=== PATIENT | male | born 1955 | race Caucasian/White ===

== ENCOUNTER 2021-11-02 15:45 | Emergency (ER) | payer MEDICAID, MEDICARE ==
[2021-11-02 18:34] LABS: ESTIMATED GFR 84 mL/min (>60)
[2021-11-02 19:13] VITALS: BP 126/75; PULSE 59
== END 2021-11-02 20:03 | disposition home or self-care (01) ==
LOC: JP.ED 15:45
DX: R41.0 Disorientation, unspecified (principal); E87.5 Hyperkalemia; I10 Essential (primary) hypertension; Z79.899 Other long term (current) drug therapy; Z79.82 Long term (current) use of aspirin
CPT/HCPCS: 36415; 80053; 81001; 85025; 87086; 93005; 99285

== ENCOUNTER 2021-11-17 12:23 | Emergency (ER) | payer MEDICARE ==
[2021-11-17 14:44] LABS: ESTIMATED GFR 75 mL/min (>60)
[2021-11-17 14:59] VITALS: BP 141/54; PULSE 57
== END 2021-11-17 16:15 | disposition home or self-care (01) ==
LOC: JP.ED 12:23
DX: F41.9 Anxiety disorder, unspecified (principal); F32.9 Major depressive disorder, single episode, unspecified; I12.9 Hypertensive chronic kidney disease with stage 1 through stage 4 chronic kidney disease, or unspecified chronic kidney disease; N18.30 Chronic kidney disease, stage 3 unspecified; R41.0 Disorientation, unspecified; R53.82 Chronic fatigue, unspecified; Z79.899 Other long term (current) drug therapy; Z79.82 Long term (current) use of aspirin
CPT/HCPCS: 36415; 80053; 81001; 84443; 85025; 99283

== ENCOUNTER 2021-12-02 12:02 | Emergency (ER) | payer MEDICARE ==
[2021-12-02 13:23] LABS: ESTIMATED GFR 84 mL/min (>60)
[2021-12-03] MEDS ORDERED: hydrOXYzine HCl 25 MG Tab PO PRN (11:14)
[2021-12-03] MEDS ORDERED: Ibuprofen 600 MG Tab PO ONE (11:14)
[2021-12-03] MEDS ORDERED: Furosemide 40 MG Tab PO SCH (11:15)
[2021-12-03] MEDS ORDERED: Non-Formulary Medication 1 Each (Potassium Chloride [Potassium Chloride] 20 MEQ Tablet.Er) PO SCH (11:15)
[2021-12-03] MEDS ORDERED: Non-Formulary Medication 1 Each (Magnesium Chloride [Magnesium] 64 MG Tablet) PO SCH (11:15)
[2021-12-03] MEDS ORDERED: ARIPiprazole 10 MG Tab PO SCH (11:15)
[2021-12-03] MEDS ORDERED: Non-Formulary Medication 1 Each (Metoprolol Succinate [Metoprolol Succinate] 100 MG Tab.Er PO SCH (11:15)
[2021-12-03] MEDS ORDERED: Potassium Chloride 20 MEQ Tab.ER PO ONE (11:16)
[2021-12-03] MEDS: Aspirin 81 MG Tab.Chew PO SCH (11:50)
[2021-12-03] MEDS: Metoprolol Succinate 50 MG Tab.ER PO SCH (11:52)
[2021-12-03] MEDS: Magnesium Oxide 400 MG Tab PO SCH (11:55)
[2021-12-03] MEDS: Furosemide 20 MG Tab PO SCH ×2 (11:56→17:45)
[2021-12-03] MEDS: Potassium Chloride 20 MEQ Tab.ER PO SCH ×2 (11:57→21:05)
[2021-12-03] MEDS: Polyethylene Glycol 3350 Powder 17 GM Packet PO SCH (12:02)
[2021-12-03] MEDS: atorvaSTATin 20 MG Tab PO SCH (21:05)
[2021-12-03] MEDS: Tamsulosin 0.4 MG Cap.ER PO SCH (21:05)
[2021-12-04] MEDS: Polyethylene Glycol 3350 Powder 17 GM Packet PO SCH (08:22)
[2021-12-04] MEDS: Potassium Chloride 20 MEQ Tab.ER PO SCH ×2 (08:22→23:13)
[2021-12-04] MEDS: Metoprolol Succinate 50 MG Tab.ER PO SCH (08:23)
[2021-12-04] MEDS: Magnesium Oxide 400 MG Tab PO SCH (08:23)
[2021-12-04] MEDS: Aspirin 81 MG Tab.Chew PO SCH (08:23)
[2021-12-04] MEDS: Furosemide 20 MG Tab PO SCH ×2 (08:25→13:46)
[2021-12-04] MEDS: hydrOXYzine HCl 25 MG Tab PO SCH ×2 (16:03→23:12)
[2021-12-04] MEDS: atorvaSTATin 20 MG Tab PO SCH (23:12)
[2021-12-04] MEDS: Tamsulosin 0.4 MG Cap.ER PO SCH (23:12)
[2021-12-04] MEDS: Haloperidol 1 MG Tab PO SCH (23:21)
[2021-12-05] MEDS: Polyethylene Glycol 3350 Powder 17 GM Packet PO SCH (10:13)
[2021-12-05] MEDS: Aspirin 81 MG Tab.Chew PO SCH (10:13)
[2021-12-05] MEDS: hydrOXYzine HCl 25 MG Tab PO SCH ×2 (10:14→21:34)
[2021-12-05] MEDS: Potassium Chloride 20 MEQ Tab.ER PO SCH ×2 (10:14→21:33)
[2021-12-05] MEDS: Furosemide 20 MG Tab PO SCH ×2 (10:14→13:45)
[2021-12-05] MEDS: Magnesium Oxide 400 MG Tab PO SCH (10:15)
[2021-12-05] MEDS: Metoprolol Succinate 50 MG Tab.ER PO SCH (10:16)
[2021-12-05] MEDS: Tamsulosin 0.4 MG Cap.ER PO SCH (21:34)
[2021-12-05] MEDS: Haloperidol 1 MG Tab PO SCH (21:34)
[2021-12-05] MEDS: atorvaSTATin 20 MG Tab PO SCH (21:34)
[2021-12-06] MEDS: Metoprolol Succinate 50 MG Tab.ER PO SCH (09:38)
[2021-12-06] MEDS: Aspirin 81 MG Tab.Chew PO SCH (09:38)
[2021-12-06] MEDS: Furosemide 20 MG Tab PO SCH (09:38)
[2021-12-06] MEDS: Magnesium Oxide 400 MG Tab PO SCH (09:51)
[2021-12-06] MEDS: hydrOXYzine HCl 25 MG Tab PO SCH ×2 (09:52→22:11)
[2021-12-06] MEDS: Polyethylene Glycol 3350 Powder 17 GM Packet PO SCH (09:52)
[2021-12-06] MEDS: Potassium Chloride 20 MEQ Tab.ER PO SCH ×2 (09:52→22:11)
[2021-12-06] MEDS ORDERED: LORazepam 1 MG Tab PO PRN (11:54)
[2021-12-06] MEDS: Sertraline 50 MG Tab PO SCH (12:16)
[2021-12-06] MEDS: Tamsulosin 0.4 MG Cap.ER PO SCH (22:11)
[2021-12-06] MEDS: atorvaSTATin 20 MG Tab PO SCH (22:11)
[2021-12-06] MEDS: Haloperidol 1 MG Tab PO SCH (22:11)
[2021-12-07] MEDS: Sertraline 50 MG Tab PO SCH (09:50)
[2021-12-07] MEDS: Magnesium Oxide 400 MG Tab PO SCH (09:51)
[2021-12-07] MEDS: Metoprolol Succinate 50 MG Tab.ER PO SCH (09:52)
[2021-12-07] MEDS: Furosemide 20 MG Tab PO SCH ×2 (09:54→09:59)
[2021-12-07] MEDS: Aspirin 81 MG Tab.Chew PO SCH (09:55)
[2021-12-07 09:56] VITALS: BP 137/68; PULSE 82
[2021-12-07] MEDS: Potassium Chloride 20 MEQ Tab.ER PO SCH (09:56)
[2021-12-07] MEDS: hydrOXYzine HCl 25 MG Tab PO SCH (09:58)
[2021-12-07] MEDS: Polyethylene Glycol 3350 Powder 17 GM Packet PO SCH (09:59)
== END 2021-12-07 13:34 | disposition home or self-care (01) ==
LOC: JP.ED 12:02
DX: F43.23 Adjustment disorder with mixed anxiety and depressed mood (principal); I10 Essential (primary) hypertension; Z59.00 Homelessness unspecified; Z79.82 Long term (current) use of aspirin; Z79.899 Other long term (current) drug therapy; Z20.822 Contact with and (suspected) exposure to COVID-19
CPT/HCPCS: 36415; 80053; 81003; 84443; 85025; 93005; 99285; A9270; U0002

== ENCOUNTER 2021-12-31 16:18 | Emergency (ER) | payer MEDICARE | END 2021-12-31 16:52 | disposition home or self-care (01) | LOC: JP.ED 16:18 | DX: S50.01XA Contusion of right elbow, initial encounter (principal); W19.XXXA Unspecified fall, initial encounter | CPT/HCPCS: 73080-26-RT; 73080-RT; 73130-26-LT; 73130-LT; 99283 ==

== ENCOUNTER 2022-04-11 11:40 | Emergency (ER) | payer MEDICARE ==
[2022-04-11] MEDS ORDERED: Sodium Chloride 0.9% 10 ML Syringe FLUSH PRN (11:51)
[2022-04-11] MEDS ORDERED: Diltiazem 25 MG/5 ML SDV IVPUSH ONE (12:02)
[2022-04-11 12:04] VITALS: BP 127/95; PULSE 168
[2022-04-11] MEDS ORDERED: Diltiazem 100 MG in Sodium Chloride 0.9% 100 ML IV SCH (12:15)
[2022-04-11 12:37] LABS: TROPONIN I HIGH SENSITIVITY 49.6 pg/mL (<=60.3)
[2022-04-11 12:47] LABS: CORONAVIRUS COVID-19 NAA NEGATIVE (NEGATIVE)
[2022-04-11] MEDS ORDERED: Potassium Chloride 20 MEQ Tab.ER PO ONE (13:00)
[2022-04-11] MEDS ORDERED: Propofol 200 MG/20 ML SDV ONE (13:55)
[2022-04-11] MEDS ORDERED: Lidocaine 4% Crm 5 GM Tube TOP ONE (14:29)
[2022-04-11] MEDS ORDERED: Bacitracin Oint 1 GM U/D Packet TOP ONE (14:29)
== END 2022-04-11 15:09 | disposition home or self-care (01) ==
LOC: JP.ED 11:40
DX: T21.21XA Burn of second degree of chest wall, initial encounter (principal); I48.91 Unspecified atrial fibrillation; E87.6 Hypokalemia; I13.0 Hypertensive heart and chronic kidney disease with heart failure and stage 1 through stage 4 chronic kidney disease, or unspecified chronic kidney disease; N18.30 Chronic kidney disease, stage 3 unspecified; I50.30 Unspecified diastolic (congestive) heart failure; I25.10 Atherosclerotic heart disease of native coronary artery without angina pectoris; Z79.82 Long term (current) use of aspirin; Z20.822 Contact with and (suspected) exposure to COVID-19; Z95.818 Presence of other cardiac implants and grafts; Z87.891 Personal history of nicotine dependence
CPT/HCPCS: 0241U; 36415; 71045; 80048; 83735; 83880; 84439; 84443; 84484; 85025; 85610; 85730; 92960; 93005; 93010; 96365; 99284; 99285-25; A9270-GY; J2704; J3490

== ENCOUNTER 2022-04-18 13:45 | Emergency (ER) | payer MEDICAID, MEDICARE ==
[2022-04-18] MEDS ORDERED: Metoprolol Tartrate 5 MG/5 ML SDV IVPUSH ONE (14:17)
[2022-04-18] MEDS ORDERED: Propofol 200 MG/20 ML SDV IVPUSH ONE (14:35)
[2022-04-18] MEDS ORDERED: Metoprolol Tartrate 50 MG Tab PO ONE (16:21)
[2022-04-18] MEDS ORDERED: Apixaban 5 MG Tab PO ONE (16:21)
[2022-04-18 17:25] VITALS: BP 123/86; PULSE 132
== END 2022-04-18 17:40 | disposition home or self-care (01) ==
LOC: JP.ED 13:45
DX: I48.91 Unspecified atrial fibrillation (principal); I10 Essential (primary) hypertension; Z79.899 Other long term (current) drug therapy; Z79.82 Long term (current) use of aspirin; Z79.01 Long term (current) use of anticoagulants; Z86.16 Personal history of COVID-19
CPT/HCPCS: 92960; 93010; 96374; 99284; 99284-25; A9270-GY; J2704; J3490

== ENCOUNTER 2024-05-02 11:16 | Emergency (ER) | payer MEDICARE ==
[2024-05-02 13:55] LABS: BASOPHILS ABSOLUTE AUTO 0.05 K/uL (0.00-0.10); BASOPHILS PERCENT AUTO 0.6 % (0.1-1.3); EOSINOPHILS ABSOLUTE AUTO 0.21 K/uL (0.00-0.40); EOSINOPHILS PERCENT AUTO 2.3 % (0.0-5.4); HEMATOCRIT 34.4 % (38.4-49.7); HEMOGLOBIN 10.8 g/dL (12.9-16.9); IMMATURE GRAN ABSOLUTE AUTO 0.06 K/uL (0.00-0.23); IMMATURE GRAN PERCENT AUTO 0.7 % (0.0-0.7); LYMPHOCYTES ABSOLUTE AUTO 0.81 K/uL (0.8-3.3); MEAN CORPUSCULAR HEMOGLOBIN 28.5 pg (31.6-35.5); MEAN CORPUSCULAR HGB CONC 31.4 g/dL (31.6-35.5); MEAN CORPUSCULAR VOLUME 90.8 fL (81.4-99.0); MONOCYTES ABSOLUTE AUTO 0.68 K/uL (0.20-0.90); MONOCYTES PERCENT AUTO 7.6 % (3.3-12.6); NEUTROPHILS ABSOLUTE AUTO 7.18 K/uL (1.0-7.6); NEUTROPHILS PERCENT AUTO 79.8 % (40.0-78.1); PLATELET COUNT,PLT 232 K/uL (130-375); RED BLOOD CELL COUNT 3.79 M/uL (4.14-5.76)
[2024-05-02 14:22] LABS: ALANINE AMINOTRANSFERASE,ALT 17 U/L (12-78); ALBUMIN 3.8 g/dL (3.4-5.0); ALKALINE PHOSPHATASE 127 U/L (46-116); ANION GAP 10.2 mmol/L (5.0-14.0); ASPARTATE AMNIOTRANSFERASE,AST 29 U/L (15-37); BILIRUBIN TOTAL 0.6 mg/dL (0.2-1.0); BLOOD UREA NITROGEN,BUN 31 mg/dL (7-18); CALCIUM 8.6 mg/dL (8.5-10.1); CARBON DIOXIDE,CO2 31 mmol/L (21-32); CHLORIDE,CL 100 mmol/L (100-108); CREATININE 1.5 mg/dL (0.8-1.3); EST CRCL DRUG DOSING (CG) 44.68 mL/min; ESTIMATED GFR 51 mL/min (>60); GLUCOSE RANDOM 107 mg/dL (74-106); POTASSIUM,K 3.9 mmol/L (3.6-5.2); PROTEIN TOTAL,TP 7.8 g/dL (6.4-8.2); SODIUM,NA 141 mmol/L (140-148)
[2024-05-02] MEDS: Sodium Chloride 0.9% 10 ML SDV FLUSH ONE (14:53)
[2024-05-02] MEDS: Iopamidol 612 MG/ML 100 ML Bottle IV PRN (15:03)
[2024-05-02] MEDS: Sodium Chloride 0.9% 100 ML IV SCH (15:04)
[2024-05-02 16:12] VITALS: BP 116/77; PULSE 71
== END 2024-05-02 17:40 | disposition home or self-care (01) ==
LOC: JP.ED 11:16
DX: R53.1 Weakness (principal); I48.91 Unspecified atrial fibrillation; I10 Essential (primary) hypertension; Z79.82 Long term (current) use of aspirin; Z79.899 Other long term (current) drug therapy; Z86.16 Personal history of COVID-19
CPT/HCPCS: 36415; 70450; 71260; 74177; 80053; 80162; 83605; 85025; 99285; Q9967; 99284

== ENCOUNTER 2024-05-07 13:50 | Emergency (ER) | payer MEDICARE ==
[2024-05-07 15:14] LABS: BASOPHILS ABSOLUTE AUTO 0.04 K/uL (0.00-0.10); BASOPHILS PERCENT AUTO 0.4 % (0.1-1.3); EOSINOPHILS ABSOLUTE AUTO 0.11 K/uL (0.00-0.40); EOSINOPHILS PERCENT AUTO 1.1 % (0.0-5.4); HEMATOCRIT 29.4 % (38.4-49.7); HEMOGLOBIN 9.2 g/dL (12.9-16.9); IMMATURE GRAN ABSOLUTE AUTO 0.05 K/uL (0.00-0.23); IMMATURE GRAN PERCENT AUTO 0.5 % (0.0-0.7); LYMPHOCYTES ABSOLUTE AUTO 0.85 K/uL (0.8-3.3); LYMPHOCYTES PERCENT AUTO 8.7 % (11.4-47.7); MEAN CORPUSCULAR HEMOGLOBIN 28.8 pg (31.6-35.5); MEAN CORPUSCULAR HGB CONC 31.3 g/dL (31.6-35.5); MEAN CORPUSCULAR VOLUME 91.9 fL (81.4-99.0); MONOCYTES ABSOLUTE AUTO 1.21 K/uL (0.20-0.90); MONOCYTES PERCENT AUTO 12.4 % (3.3-12.6); NEUTROPHILS ABSOLUTE AUTO 7.48 K/uL (1.0-7.6); NEUTROPHILS PERCENT AUTO 76.9 % (40.0-78.1); PLATELET COUNT,PLT 229 K/uL (130-375); WHITE BLOOD CELL COUNT,WBC 9.7 K/uL (3.2-11.0)
[2024-05-07 15:24] LABS: APPEARANCE,URINE CLEAR (CLEAR); BILIRUBIN,URINE NEGATIVE (NEGATIVE); COLOR,URINE YELLOW (YELLOW); GLUCOSE,URINE NEGATIVE (NEGATIVE); KETONES,URINE NEGATIVE (NEGATIVE); LEUKOCYTE ESTERASE,URINE NEGATIVE (NEGATIVE); NITRITE,URINE NEGATIVE (NEGATIVE); OCCULT BLOOD,URINE TRACE-INTACT (NEGATIVE); PH,URINE 5.5 (5.0-8.0); PROTEIN,URINE NEGATIVE (NEGATIVE)
[2024-05-07 15:33] LABS: RBC,URINE 0-5 (0-5); WBC,URINE 0-5 (0-5)
[2024-05-07 15:34] LABS: AMORPHOUS SEDIMENT,URINE OCCASIONAL; BACTERIA,URINE RARE; EPITHELIAL CELLS,URINE OCCASIONAL; MUCUS,URINE OCCASIONAL
[2024-05-07 15:37] LABS: A/G RATIO 0.9 (1.2-2.2); ALANINE AMINOTRANSFERASE,ALT 16 U/L (12-78); ALBUMIN 3.4 g/dL (3.4-5.0); ALKALINE PHOSPHATASE 115 U/L (46-116); ASPARTATE AMNIOTRANSFERASE,AST 38 U/L (15-37); BILIRUBIN TOTAL 0.9 mg/dL (0.2-1.0); BLOOD UREA NITROGEN,BUN 30 mg/dL (7-18); C-REACTIVE PROTEIN 5.78 mg/dL (<0.50); CALCIUM 8.5 mg/dL (8.5-10.1); CARBON DIOXIDE,CO2 30 mmol/L (21-32); CHLORIDE,CL 101 mmol/L (100-108); CREATININE 1.6 mg/dL (0.8-1.3); EST CRCL DRUG DOSING (CG) 46.26 mL/min; ESTIMATED GFR 47 mL/min (>60); GLUCOSE RANDOM 107 mg/dL (74-106); POTASSIUM,K 3.6 mmol/L (3.6-5.2); PROTEIN TOTAL,TP 7.2 g/dL (6.4-8.2); SODIUM,NA 139 mmol/L (140-148)
[2024-05-07 15:38] LABS: ANION GAP 11.6 mmol/L (5.0-14.0)
[2024-05-07 15:40] LABS: SEDIMENTATION RATE MANUAL 101 mm/hr (0-20)
[2024-05-07 17:16] LABS: CORONAVIRUS COVID-19 NAA NEGATIVE (NEGATIVE); INFLUENZA A NAA NEGATIVE (NEGATIVE); INFLUENZA B NAA NEGATIVE (NEGATIVE); RESPIRATORY SYNCYTIAL VIR NAA NEGATIVE (NEGATIVE)
[2024-05-07 20:07] VITALS: PULSE 83
[2024-05-07] MEDS: cefTRIAXone 1 GM in Sodium Chloride 0.9% 50 ML IV ONE (22:11)
[2024-05-07 22:13] VITALS: BP 125/48
== END 2024-05-07 23:03 ==
LOC: JP.ED 13:50
DX: R53.1 Weakness (principal); L03.115 Cellulitis of right lower limb; I10 Essential (primary) hypertension; R06.89 Other abnormalities of breathing; Z79.82 Long term (current) use of aspirin; Z79.899 Other long term (current) drug therapy
CPT/HCPCS: 0241U; 36415; 71046; 80053; 81001; 83880; 84145; 84443; 84484; 85025; 85651; 86140; 87040; 96365; 99285; J0696

== ENCOUNTER 2025-02-23 01:55 | Inpatient (IN) | payer MEDICARE ==
[2025-02-23 02:18] LABS: BASOPHILS ABSOLUTE AUTO 0.05 K/uL (0.00-0.10); BASOPHILS PERCENT AUTO 0.5 % (0.1-1.3); EOSINOPHILS ABSOLUTE AUTO 0.07 K/uL (0.00-0.40); EOSINOPHILS PERCENT AUTO 0.8 % (0.0-5.4); IMMATURE GRAN ABSOLUTE AUTO 0.09 K/uL (0.00-0.23); IMMATURE GRAN PERCENT AUTO 1.0 % (0.0-0.7); LYMPHOCYTES ABSOLUTE AUTO 0.89 K/uL (0.8-3.3); LYMPHOCYTES PERCENT AUTO 9.6 % (11.4-47.7); MONOCYTES ABSOLUTE AUTO 1.00 K/uL (0.20-0.90); MONOCYTES PERCENT AUTO 10.8 % (3.3-12.6); NEUTROPHILS ABSOLUTE AUTO 7.19 K/uL (1.0-7.6); NEUTROPHILS PERCENT AUTO 77.3 % (40.0-78.1); PLATELET COUNT,PLT 185 K/uL (130-375); RED BLOOD CELL COUNT 5.83 M/uL (4.14-5.76); WHITE BLOOD CELL COUNT,WBC 9.3 K/uL (3.2-11.0)
[2025-02-23 02:35] LABS: INR 2.1
[2025-02-23 02:38] LABS: A/G RATIO 0.9 (1.2-2.2); ALANINE AMINOTRANSFERASE,ALT 97 U/L (12-78); ASPARTATE AMNIOTRANSFERASE,AST 189 U/L (15-37); BILIRUBIN TOTAL 6.1 mg/dL (0.2-1.0); BLOOD UREA NITROGEN,BUN 54 mg/dL (7-18); CARBON DIOXIDE,CO2 29 mmol/L (21-32); CHLORIDE,CL 103 mmol/L (100-108); CREATININE 2.2 mg/dL (0.8-1.3); EST CRCL DRUG DOSING (CG) 29.40 mL/min; ESTIMATED GFR 32 mL/min (>60); GLUCOSE RANDOM 103 mg/dL (74-106); POTASSIUM,K 3.9 mmol/L (3.6-5.2); PROTEIN TOTAL,TP 6.6 g/dL (6.4-8.2); SODIUM,NA 145 mmol/L (140-148)
[2025-02-23 02:43] LABS: APPEARANCE,URINE CLEAR (CLEAR); GLUCOSE,URINE NEGATIVE (NEGATIVE); OCCULT BLOOD,URINE NEGATIVE (NEGATIVE)
[2025-02-23] MEDS: Sodium Chloride 0.9% 10 ML Syringe FLUSH PRN (03:59)
[2025-02-23] MEDS: Iopamidol 755 Mg/ML 100 ML Bottle IV SCH (03:59)
[2025-02-23] MEDS: Heparin Sodium 5,000 Units/ML Vial IVPUSH ONE (05:22)
[2025-02-23] MEDS ORDERED: Ondansetron 4 MG/2 ML SDV IV PRN (06:16)
[2025-02-23] MEDS ORDERED: Ondansetron 4 MG Tab.DIS PO PRN (06:16)
[2025-02-23] MEDS ORDERED: Magnesium Hydroxide 400 MG/5 ML Susp 30 ML Cup PO PRN (06:16)
[2025-02-23] MEDS ORDERED: Sennosides/Docusate Sodium 50-8.6 MG Tab PO PRN (06:16)
[2025-02-23] MEDS: Potassium Chloride 10 MEQ Cap.ER PO SCH (08:06)
[2025-02-23 12:45] LABS: BLOOD UREA NITROGEN,BUN 53.0 mg/dL (7-18); CARBON DIOXIDE,CO2 29.0 mmol/L (21-32); CHLORIDE,CL 105.0 mmol/L (100-108); CREATININE 2.0 mg/dL (0.8-1.3); EST CRCL DRUG DOSING (CG) 32.34 mL/min; ESTIMATED GFR 36.0 mL/min (>60); GLUCOSE RANDOM 121.0 mg/dL (74-106); POTASSIUM,K 4.2 mmol/L (3.6-5.2); SODIUM,NA 146.0 mmol/L (140-148)
[2025-02-24 02:25] LABS: BASE EXCESS ARTERIAL -10.3 mm/L; BASOPHILS PERCENT AUTO 0.2 % (0.1-1.3); BICARBONATE,ARTERIAL 15.4 mmol/L (22.0-26.0); EOSINOPHILS PERCENT AUTO 0.1 % (0.0-5.4); IMMATURE GRAN ABSOLUTE AUTO 0.09 K/uL (0.00-0.23); IMMATURE GRAN PERCENT AUTO 0.9 % (0.0-0.7); LYMPHOCYTES ABSOLUTE AUTO 0.71 K/uL (0.8-3.3); LYMPHOCYTES PERCENT AUTO 7.4 % (11.4-47.7); MONOCYTES ABSOLUTE AUTO 0.81 K/uL (0.20-0.90); MONOCYTES PERCENT AUTO 8.5 % (3.3-12.6); NEUTROPHILS ABSOLUTE AUTO 7.90 K/uL (1.0-7.6); NEUTROPHILS PERCENT AUTO 82.9 % (40.0-78.1); O2 SATURATION ARTERIAL 90.2 % (95.0-98.0); OXYHEMOGLOBIN 88.7 %; PCO2 ARTERIAL 34.7 mmHg (35.0-42.0); PLATELET COUNT,PLT 185 K/uL (130-375); PO2 ARTERIAL 83.6 mmHg (75.0-100.0); RED BLOOD CELL COUNT 5.91 M/uL (4.14-5.76); TOTAL HEMOGLOBIN 14.9 g/dL (13.5-18.0); WHITE BLOOD CELL COUNT,WBC 9.5 K/uL (3.2-11.0)
[2025-02-24 02:27] LABS: BASOPHILS ABSOLUTE AUTO 0.02 K/uL (0.00-0.10); EOSINOPHILS ABSOLUTE AUTO 0.01 K/uL (0.00-0.40)
[2025-02-24 02:49] LABS: A/G RATIO 1.0 (1.2-2.2); ALANINE AMINOTRANSFERASE,ALT 97 U/L (12-78); ASPARTATE AMNIOTRANSFERASE,AST 182 U/L (15-37); BILIRUBIN TOTAL 6.9 mg/dL (0.2-1.0); BLOOD UREA NITROGEN,BUN 55 mg/dL (7-18); CARBON DIOXIDE,CO2 19 mmol/L (21-32); CHLORIDE,CL 108 mmol/L (100-108); CREATININE 2.3 mg/dL (0.8-1.3); EST CRCL DRUG DOSING (CG) 28.12 mL/min; ESTIMATED GFR 30 mL/min (>60); GLUCOSE RANDOM 69 mg/dL (74-106); POTASSIUM,K 4.8 mmol/L (3.6-5.2); PROTEIN TOTAL,TP 6.3 g/dL (6.4-8.2); SODIUM,NA 147 mmol/L (140-148)
[2025-02-24 02:50] LABS: TROPONIN I HIGH SENSITIVITY 63.7 pg/mL (<=60.3)
[2025-02-24] MEDS: Esmolol HCL in Sterile Water 2,500 MG/250 ML BAG IV SCH (03:50)
[2025-02-24] MEDS: methylPREDNISolone Sodium Succinate 125 MG/2 ML SDV IVPUSH ONE (04:07)
[2025-02-24] MEDS: Lactulose Soln 10 GM/15 ML 15 ML UD Cup PO ONE (04:19)
[2025-02-24] MEDS: Norepinephrine Bit/D5W Premix 4 MG/250 ML BAG IV SCH (07:11)
[2025-02-24] MEDS: Hydrocortisone Sodium Succinate 100 MG/2 ML SDV IVPUSH ONE (08:06)
[2025-02-24 08:26] LABS: BASE EXCESS VENOUS -10.8 mm/L; BICARBONATE,VENOUS 16.6 mmol/L; O2 SATURATION VENOUS 59.8; OXYHEMOGLOBIN 58.5 %; PCO2 VENOUS 42.8 mm/Hg; PH,VENOUS 7.213 (7.350-7.450); PO2 VENOUS 44.9 mm/Hg; TOTAL HEMOGLOBIN 15.1 g/dL (13.5-18.0)
[2025-02-24] MEDS: fentaNYL 50 MCG/ML SDV IVPUSH PRN (08:46)
[2025-02-24] MEDS: LORazepam 2 MG/ML SDV IVPUSH PRN (09:22)
[2025-02-24 11:39] VITALS: BP 135/87; PULSE 115
[2025-02-24] MEDS: methylPREDNISolone Sodium Succinate 125 MG/2 ML SDV IVPUSH SCH (11:53)
== END 2025-02-24 12:30 | disposition expired | DRG 871 ==
LOC: JP.ED 01:55 → JP.MS 05:36 → JP.ICU 02-24 03:17
PROVIDERS: ADMIT Nurse Practitioner; ATTEND Internal Medicine
PROC: 3E03329 Introduction of Other Anti-infective into Peripheral Vein, Percutaneous Approach (ICD-10-PCS; principal; 2025-02-23)
PROC: 3E033XZ Introduction of Vasopressor into Peripheral Vein, Percutaneous Approach (ICD-10-PCS; 2025-02-23)
PROC: 5A09357 Assistance with Respiratory Ventilation, Less than 24 Consecutive Hours, Continuous Positive Airway Pressure (ICD-10-PCS; 2025-02-23)
PROC: 4A033R1 Measurement of Arterial Saturation, Peripheral, Percutaneous Approach (ICD-10-PCS; 2025-02-23)
DX: A41.9 Sepsis, unspecified organism (principal); I26.99 Other pulmonary embolism without acute cor pulmonale; J69.0 Pneumonitis due to inhalation of food and vomit; R65.21 Severe sepsis with septic shock; J96.01 Acute respiratory failure with hypoxia; J18.9 Pneumonia, unspecified organism; N17.9 Acute kidney failure, unspecified; E87.20 Acidosis, unspecified; J98.11 Atelectasis; I13.0 Hypertensive heart and chronic kidney disease with heart failure and stage 1 through stage 4 chronic kidney disease, or unspecified chronic kidney disease; I50.42 Chronic combined systolic (congestive) and diastolic (congestive) heart failure; I42.9 Cardiomyopathy, unspecified; Z66 Do not resuscitate; I11.0 Hypertensive heart disease with heart failure; I50.9 Heart failure, unspecified; K74.60 Unspecified cirrhosis of liver; E86.0 Dehydration; E53.8 Deficiency of other specified B group vitamins; N18.30 Chronic kidney disease, stage 3 unspecified; F41.9 Anxiety disorder, unspecified; F32.A Depression, unspecified; H54.7 Unspecified visual loss; G47.30 Sleep apnea, unspecified; M10.9 Gout, unspecified; G89.29 Other chronic pain; I48.91 Unspecified atrial fibrillation; I25.10 Atherosclerotic heart disease of native coronary artery without angina pectoris; E61.1 Iron deficiency; Z79.82 Long term (current) use of aspirin; Z98.84 Bariatric surgery status; E66.9 Obesity, unspecified; E03.9 Hypothyroidism, unspecified; Z79.1 Long term (current) use of non-steroidal anti-inflammatories (NSAID); Z79.01 Long term (current) use of anticoagulants; Z68.33 Body mass index [BMI] 33.0-33.9, adult; Z95.810 Presence of automatic (implantable) cardiac defibrillator; Z98.890 Other specified postprocedural states; N18.9 Chronic kidney disease, unspecified; Z79.899 Other long term (current) drug therapy; Z79.890 Hormone replacement therapy; Z68.36 Body mass index [BMI] 36.0-36.9, adult
CPT/HCPCS: 36415; 71045 ×2; 71275; 80053; 80162; 81003; 83880; 84484; 85025; 85610; 86140; 93005; 96360; 99285; 99291; J7030; Q9967; 36600; 74176; 80048; 82140; 82803; 83605; 93010; 94640; 94660; 99223; 99238; A9270-GY; J0696; J0713; J1160; J1271; J1720; J2060; J2598; J2919; J3010; J3490; J7070